=== PATIENT | female | born 1930 | race Caucasian/White ===

== ENCOUNTER 2016-12-23 07:12 | Emergency (ER) | payer MEDICARE ==
--- NOTE | 2016-12-23 07:58 | ED ---
Abdominal Pain/Female - HPI Summary HPI Summary: Pt here w/ persistent diarrhea w/ lower ab cramping/bloating and urgency x 3 days. Started Wednesday night upon returning from visiting w/ family in [place] over the weekend. Denies fever, chills, N/V, chest pain, SOB, urinary sx. She admits to eating cabbage which has given her problems before. She continued to eat a variety of foods to which she is not accustomed. Reports she's felt okay but is getting fatigued from all the diarrhea. Still eating and drinking but reports food "goes right through me". Took an immodium yesterday morning which stopped diarrhea for a few hours but this returned when she ate a wrap for lunch. No h/o bowel issues other having a few polyps removed in 2009 during a colonoscopy. H/o endometrial CA w/ PABLITO and radiation - no issues since. She does not take anticoagulants and no other issues w/ bleeding/bruising. NOTE: family in [place] have well water. No one else has these sx that she's aware. - History of Current Complaint Chief Complaint: EDNauseaVomitDiarrh Stated Complaint: DIARRHEA, POSSIBLE BLOOD IN STOOL Time Seen by Provider: 12/23/16 07:40 Hx Obtained From: Patient Pain Intensity: 4 Allergies/Adverse Reactions: Allergies Allergy/AdvReac Type Severity Reaction Status Date / Time Benzonatate Allergy Dizziness, Verified 01/03/15 06:17 CONFUSED Cefuroxime [From Ceftin] Allergy Rash Verified 01/03/15 06:17 Codeine Allergy DIZZY, Verified 01/03/15 06:17 CONFUSED, NAUSEA Sulfa Antibiotics Allergy Rash Verified 01/03/15 06:17 STEROID INJECTION Allergy Severe SEVERE LEG Uncoded 01/03/15 06:17 CRAMPS, HOT FLASHES ENVIRONMENTAL/SEASONAL Allergy Runny Nose Uncoded 01/03/15 06:17 HAYFEVER PMH/Surg Hx/FS Hx/Imm Hx Previously Healthy: Yes Endocrine/Hematology History: Denies: Hx Anticoagulant Therapy, Hx Blood Disorders, Hx Diabetes, Hx Unexplained Bleeding Cardiovascular History: Reports: Hx Angina, Hx Hypertension - CONTROL WITH MEDS , Other Cardiovascular Problems/Disorders - LEFT BUNDLE BRANCH BLOCK, [employer] Denies: Hx Coronary Artery Disease, Hx Hypercholesterolemia, Hx Myocardial Infarction, Hx Pacemaker/ICD, Hx Valvular Heart Disease Respiratory History: Denies: Hx Asthma, Hx Chronic Obstructive Pulmonary Disease (COPD) GI History: Reports: Hx Gastroesophageal Reflux Disease, Other GI Disorders - Barrets Esophagus Musculoskeletal History: Reports: Hx Arthritis - BILATERAL KNEES, OSTEOARTHRITIS BACK AND KNUCKLES Sensory History: Reports: Hx Contacts or Glasses - READING GLASSES, Hx Glaucoma - BILATERAL Denies: Hx Hearing Aid Opthamlomology History: Reports: Hx Contacts or Glasses - READING GLASSES, Hx Glaucoma - BILATERAL Psychiatric History: Reports: Hx Depression - RECENTLY LOSS BROTHER TO AND SISTER IN LAW DYING OF CANCER Denies: Hx Panic Disorder - Cancer History Cancer Type, Location and Year: UTERINE - Surgical History Surgery Procedure, Year, and Place: 1971 LEFT OOPHORECTOMY AND APPENDECTOMY, [facility] – [place]. 2005 HYSTERECTOMY RIGHT OOPHORECTOMY WITH EXCISION OF PART OF VAGINAL WALL , [facility]. 2001 BILATERAL CATARACT EXTRACTION WITH IOL IMPLANT, [facility] Anesthesia Reactions: No Infectious Disease History: Denies: Traveled Outside the [place] in Last 30 Days - Social History Alcohol Use: None Substance Use Type: Reports: None Smoking Status (MU): Former Smoker Type: Cigarettes Length of Time of Smoking/Using Tobacco: 23 YEARS Have You Smoked in the Last Year: No Review of Systems Constitutional: Negative Positive: Fatigue - see HPI. Negative: Fever, Chills Cardiovascular: Negative Negative: Chest Pain Respiratory: Negative Negative: Shortness Of Breath Gastrointestinal: Other - see HPI Positive: no symptoms reported Negative: Headache Psychological: Normal All Other Systems Reviewed And Are Negative: Yes Physical Exam Triage Information Reviewed: Yes Vital Signs On Initial Exam: Initial Vitals Temp Pulse Resp BP Pulse Ox 97.2 F 77 15 144/75 99 12/23/16 07:21 12/23/16 07:21 12/23/16 07:21 12/23/16 07:21 12/23/16 07:21 Vital Signs Reviewed: Yes Appearance: Positive: Well-Appearing - appears mildly fatigued, cheeks flushed, No Pain Distress, Well-Nourished Skin: Positive: Warm, Dry Head/Face: Positive: Normal Head/Face Inspection Eyes: Positive: Normal, EOMI, Conjunctiva Clear - anicteric sclera ENT: Positive: Hearing grossly normal, Pharynx normal - mucosa moist Neck: Positive: Supple, Nontender Respiratory/Lung Sounds: Positive: Clear to Auscultation, Breath Sounds Present. Negative: Rales, Rhonchi, Wheezes Cardiovascular: Positive: RRR, Murmur, S1, S2 Abdomen Description: Positive: Soft, Other: - lower ab TTP - no rebounding Bowel Sounds: Positive: Present, Hyperactive Musculoskeletal: Positive: Normal, Strength/ROM Intact Neurological: Positive: Normal, Sensory/Motor Intact, Alert, Oriented to Person Place, Time, CN Intact II-III Psychiatric: Positive: Normal - concerned but calm and cooperative Diagnostics - Vital Signs Vital Signs Temp Pulse Resp BP Pulse Ox 12/23/16 07:21 97.2 F 77 15 144/75 99 - Laboratory Lab Statement: Any lab studies that have been ordered have been reviewed, and results considered in the medical decision making process.
[2016-12-23 08:23] LABS: Urine Bacteria Absent (Absent); Urine Bilirubin Negative (Negative); Urine Glucose Negative (Negative); Urine Nitrite Negative (Negative)
[2016-12-23 08:25] LABS: Hematocrit 41 % (35-47); Hemoglobin 14.1 g/dl (12.0-16.0); Mean Corpuscular HGB Conc 34 g/dl (31-36); Mean Corpuscular Hemoglobin 31 pg (27-31); Mean Corpuscular Volume 91 fL (80-97); Mean Platelet Volume 8 um3 (7.4-10.4); Red Blood Count 4.54 10^6/ul (4.0-5.4); Red Cell Distribution Width 13 % (10.5-15); White Blood Count 4.7 10^3/ul (3.5-10.8)
[2016-12-23 08:41] LABS: Albumin 4.1 g/dL (3.2-5.2); BUN/Creatinine Ratio 17.3 (8-20); C Reactive Protein 18.21 mg/L (< 5.00); Calcium 9.8 mg/dL (8.6-10.3); EGFR African American 69.5 (>60); EGFR Non-African American 54.1 (>60); Globulin 3.2 g/dL (2-4); Magnesium 1.8 mg/dL (1.9-2.7); Potassium 3.7 mmol/L (3.5-5.0); Total Bilirubin 0.7 mg/dL (0.2-1.0); Total Protein 7.3 g/dL (6.4-8.9)
[2016-12-23] MEDS ORDERED: Iodixanol* (CONTRAST) 320 MG/ML 100 ML SDV IV ONE (10:27)
--- NOTE | 2016-12-23 11:06 | RAD ---
CLINICAL HISTORY: Persistent diarrhea, bloody mucous, lower abdominal pain COMPARISON: None TECHNIQUE: Multiple contiguous axial CT scans were obtained of the abdomen and pelvis after the administration of intravenous contrast. Coronal and sagittal multiplanar reformations are submitted for review. Oral contrast was administered. Delayed images were obtained through the abdomen and pelvis. FINDINGS: LUNG BASES: The lung bases are clear. LIVER: The liver is normal in shape, size, contour, and attenuation. BILE DUCTS: There is no intrahepatic or extrahepatic biliary dilatation. GALLBLADDER: The gallbladder is normal, without pericholecystic inflammatory change. PANCREAS: The pancreas is normal, without mass or ductal dilatation. SPLEEN: Normal in size and appearance. UPPER GI TRACT: Evaluation of the gastrointestinal tract is limited by incomplete gastric distention. There is a moderate sized hiatal hernia. SMALL BOWEL AND MESENTERY: The small bowel is normal in contour, course, and caliber. There is no obstruction or dilatation. COLON: There is diverticulosis of the descending and sigmoid colon. There is diffuse mucosal thickening of the transverse colon ADRENALS: Normal bilaterally. KIDNEYS: The kidneys are normal in shape, size, contour, and axis. There is no hydronephrosis or nephrolithiasis. BLADDER: The bladder is incompletely distended but is grossly normal. PELVIC ORGANS: The pelvic organs are not visualized. AORTA: There is calcific atherosclerotic disease of the abdominal aorta and its branches, without aneurysmal dilatation IVC: Unremarkable LYMPH NODES: There is no lymphadenopathy by size criteria. ABDOMINAL WALL: There is no evidence for abdominal wall hernia. BONES AND SOFT TISSUES: Degenerative changes are noted of the spine. There is a scoliotic curvature of the spine OTHER: None IMPRESSION: 1. DIVERTICULOSIS OF THE DISTAL COLON. 2. MUCOSAL THICKENING OF THE TRANSVERSE COLON WHICH MAY BE AN ARTIFACT OF INCOMPLETE DISTENTION OR MAY REFLECT COLITIS. 3. HIATAL HERNIA. 4. ATHEROSCLEROSIS
[2016-12-23 12:27] VITALS: BP 123/52
== END 2016-12-23 12:26 | disposition home or self-care (01) ==
LOC: ED 07:12
DX: K44.9 Diaphragmatic hernia without obstruction or gangrene (principal); R10.9 Unspecified abdominal pain; R19.7 Diarrhea, unspecified; R53.83 Other fatigue; Z87.891 Personal history of nicotine dependence; I70.90 Unspecified atherosclerosis; K57.90 Diverticulosis of intestine, part unspecified, without perforation or abscess without bleeding
CPT/HCPCS: 36415; 74177; 80053; 81003; 81015; 82272; 83605; 83630; 83690; 83735; 85025; 85610; 85730; 86140; 87086; 99283; Q9967

== ENCOUNTER → 2018-12-16 08:55 | Day surgery (SDC) | payer MEDICARE ==
[~2018-12-16 08:55] MED LIST: Buffered Lidocaine 1% SYRIN* 1 ML/SYRINGE INTRADERM ONE; Famotidine IV* 10 MG/ML 2 ML (20 mg) IV ONE; Famotidine IV* 10 MG/ML 2 ML (20 mg) ONE; Lactated Ringers 1000 ML Bag* 1,000 ML IV SCH; Lidocaine 2% PF * 5 ML VIAL ONE; Midazolam* 1 MG/ML 5 ML VIAL (5 MG) ONE; Ondansetron INJ* 2 MG/ML VIAL ONE; Propofol* 10 MG/ML 20 ML BTL ONE; fentaNYL* 50 MCG/ML 2 ML VIAL (100 MCG VIAL) ONE
[2018-12-16 11:49] VITALS: BP 149/72
--- NOTE | 2018-12-17 01:45 | PRO ---
CC: Shayna Jimenez MD * DATE OF PROCEDURE: 12/16/18 - [facility] PH[facility]IAN: Shayna Jimenez MD INDICATION FOR PROCEDURE: Personal history of colorectal cancer. PROCEDURE PERFORMED: Complete colonoscopy to the neoterminal ileum with biopsies. MEDICATIONS GIVEN: Please see anesthesia record. DESCRIPTION OF PROCEDURE: After the colonoscopy procedure including the risks, benefits, and alternatives with the risks not limited to perforation, surgery, missed lesions and/or were explained to the patient, written informed consent was obtained. IV medication was given and a rectal exam was performed. The adult Olympus colonoscope was then inserted into the patient's rectum and advanced very carefully through the entirety of the colon into the neoterminal ileum at the anastomosis between colon and ileum. The area was without nodularity. I did take a biopsy of the area to be sure the remainder of the neoterminal ileum looked normal in appearance without any polyps, lesions, or vascular malformation. Over the next 10 minutes, the scope was carefully withdrawn inspecting the mucosa. No polyps or lesions were identified. There was moderate pandiverticulosis coli, left greater than right. On return to the rectum, direct views were normal. On retroflexion, grade 1 internal hemorrhoids were appreciated. The preparation was good. The scope was then removed from the patient. She tolerated the procedure well. She returned to the recovery room in stable condition. IMPRESSION: 1. Complete colonoscopy to the neoterminal ileum. 2. No evidence of recurrence. 3. Biopsies taken of anastomosis. 4. Moderate pandiverticulosis coli, left greater than right. 5. Grade 1 internal hemorrhoids. RECOMMENDATIONS: Recommend adding fiber to diet for her diverticulosis, otherwise recommend repeat colonoscopy in 3 years' time. [id number]/[facility] #: [id number] [facility]
== END | disposition home or self-care (01) ==
LOC: OR 08:55
PROVIDERS: ATTEND Internal Medicine Gastroenterology
DX: K57.90 Diverticulosis of intestine, part unspecified, without perforation or abscess without bleeding (principal); K64.0 First degree hemorrhoids; K21.9 Gastro-esophageal reflux disease without esophagitis; K22.70 Barrett's esophagus without dysplasia; I48.0 Paroxysmal atrial fibrillation; I10 Essential (primary) hypertension; I44.7 Left bundle-branch block, unspecified; Z88.2 Allergy status to sulfonamides; Z88.8 Allergy status to other drugs, medicaments and biological substances; Z85.038 Personal history of other malignant neoplasm of large intestine; Z86.010 Personal history of colon polyps
CPT/HCPCS: 88305; J2250; J2405; J2704; J3010

== ENCOUNTER 2022-01-07 08:07 | Inpatient (IN) ==
[2022-01-07 08:48] LABS: ABS Lymphocytes 0.6 10^3/ul (1.0-4.8); ABS Monocytes 0.3 10^3/ul (0-0.8); ABS Neutrophils 1.8 10^3/ul (1.5-7.7); Eosinophil % 1.2 %; Hematocrit 39 % (35-47); Hemoglobin 13.1 g/dL (12.0-16.0); Lymphocyte % 22.1 %; Mean Corpuscular HGB Conc 34 g/dL (31-36); Mean Corpuscular Hemoglobin 31 pg (27-31); Mean Corpuscular Volume 91 fL (80-97); Mean Platelet Volume 8.3 fL (7.4-10.4); Nucleated Red Blood Cells % 0.1; Platelet Count 208 10^3/uL (150-450); Red Blood Count 4.28 10^6 /uL (3.70-4.87); Red Cell Distribution Width 14 % (10-15); White Blood Count 2.8 10^3/uL (3.5-10.8)
[2022-01-07 08:56] LABS: INR 1.1 (0.86-1.15)
[2022-01-07 10:05] LABS: High Sensitivity Troponin 1 Hr 45 pg/mL (<15)
[2022-01-07 10:13] LABS: Albumin 3.7 g/dL (3.2-5.2); Calcium 9.2 mg/dL (8.6-10.3); Potassium 4.1 mmol/L (3.5-5.0); Total Bilirubin 0.5 mg/dL (0.2-1.0)
[2022-01-07 10:19] LABS: Albumin/Globulin Ratio 1.2 (1-3); Total Protein 6.7 g/dL (6.4-8.9); eGFR CKD-EPI 62.8 (>60)
[2022-01-07] MEDS ORDERED: Heparin DRIP 25,000 UNITS BAG 25,000 UNITS/500 ML BAG IV SCH (10:30)
[2022-01-07 10:39] LABS: Activated Partial Thrombo Time 31.5 seconds (26.0-38.0)
[2022-01-07] MEDS ORDERED: Heparin 5000 UNITS/ML 1 mL VIAL IV SCH (11:00)
[2022-01-07 11:28] LABS: TSH Ultra Thyroid Stim Horm 1.39 mcIU/mL (0.34-5.60)
[2022-01-07 11:40] LABS: eGFR CKD-EPI 74.9 (>60)
[2022-01-07 12:22] LABS: Magnesium 1.5 mg/dL (1.9-2.7)
[2022-01-07] MEDS ORDERED: Magnesium Sulf 4 GM/100 ML IV 4,000 MG/100 ML BAG IVPB ONE (12:40)
[2022-01-07] MEDS ORDERED: Lidocaine 2% PF 5 ML VIAL ONE (13:52)
[2022-01-07] MEDS ORDERED: Midazolam 2 mg/2 ml VIAL 1 mg/ml 2 ml VIAL (2 mg) ONE (13:52)
[2022-01-07] MEDS ORDERED: fentaNYL 100 mcg/2 ml 50 MCG/ML VIAL ONE ×2 (13:52→14:02)
[2022-01-07] MEDS ORDERED: Propofol 10 MG/ML 20 ML BTL ONE (13:52)
[2022-01-07] MEDS ORDERED: Phenylephrine IV 10 MG/ML 1 ml VIAL ONE (13:53)
[2022-01-07] MEDS ORDERED: Succinylcholine 200 mg VIAL 20 mg/ml 10 ml VIAL (200 mg) ONE (13:54)
[2022-01-07] MEDS ORDERED: Sodium Citrate/Citric Acid LIQ 15 ML UDC ONE (14:02)
[2022-01-08 05:50] LABS: Calcium 8.6 mg/dL (8.6-10.3); Magnesium 2.1 mg/dL (1.9-2.7); Potassium 3.9 mmol/L (3.5-5.0); eGFR CKD-EPI 66.4 (>60)
[2022-01-08] MEDS: Cholestyramine Resin 4 GM POWDER PO SCH (09:51)
[2022-01-08] MEDS ORDERED: Metoprolol Tartrate 5 mg VIAL 5 ml VIAL (1 mg/ml) IV PRN (16:18)
[2022-01-08] MEDS: Multivitamins/Minerals TAB PO SCH (17:34)
[2022-01-08] MEDS ORDERED: Latanoprost 0.005% 2.5 ml BTL BOTH EYES SCH (21:00)
[2022-01-09] MEDS: Cholestyramine Resin 4 GM POWDER PO SCH (08:21)
[2022-01-09 08:59] LABS: Magnesium 1.9 mg/dL (1.9-2.7); Potassium 4.1 mmol/L (3.5-5.0); eGFR CKD-EPI 71.5 (>60)
[2022-01-09] MEDS ORDERED: Potassium Chlor 20 meq TAB.ER PO SCH (09:00)
[2022-01-09] MEDS ORDERED: CMCS:Omeprazole 20 mg CAP (NF) PO SCH (09:00)
[2022-01-09] MEDS: Multivitamins/Minerals TAB PO SCH (12:39)
[2022-01-09 15:45] VITALS: BP 158/79
== END 2022-01-09 17:45 | disposition home or self-care (01) | DRG 309 ==
LOC: ED 08:07 → CHICATH 14:06 → MEDTELE 15:10 → SUATTDRO 15:10
PROVIDERS: ADMIT Internal Medicine; ATTEND Internal Medicine